=== PATIENT | female | born 1980 | race Caucasian/White ===

== ENCOUNTER → 2017-12-25 09:40 | Outpatient (CLI) | payer OTHER, MEDICAID, SELFPAY ==
--- NOTE | 2017-12-25 11:17 | DIET.PN ---
INITIAL GESTATIONAL DIABETES ASSESSMENT ASSESS: 37 y.o F referred regarding newly diagnosed gestational diabetes. This is pts third with GDM. Reports no family hx of diabetes. States she was placed on insulin with first . Was able to manage BG with diet and exercise with second. Did not have OGTT done with current , however was placed on GDM guidelines. Reports following a vegan diet when not , but currently consumes meat, some dairy, peanut butter and a lot of veggies. Pt states it has been harder to monitor BG and eat regularly as she is now in school and has 2 kids in school. Admits she probably is not eating as much or as often as she should. Is checking BG 2-3x/day most days. BRIAN: April 27, 2018 WKS GESTATION: 24 weeks LABS: 1 hr OGTT was not tested this . FB-70 1hrPP: 90-140 MEDS: n/a DIET: B: boiled egg; yogurt w/ granola; sausage w/ cheese L: vegetable smoothie D: chicken or fish, veggies, brown rice (1/2-1 cup) EXERCISE: hikes/walks daily HT: 63 PRE-PREG WT: 135 lb PRE-PREG BMI: 24 (normal) CURRENT WT: 147 lb TOTAL WT GAIN: 12 lb NUTRITION DX (1) Altered nutrition related lab values r/t Gestational diabetes as evidenced by elevated blood glucose values (OGT) INTERVENTION (1) Discussed pathophysiology of gestational diabetes and impact of hormone and nutrition/diet on blood sugar control. Discussed fed versus non-fed state. (2) Recommended checking fasting and 1hr post prandial (3x/day). Discussed goals for glycemic control (<95 FBG, <140 1-hr PP). Discussed safe disposal of strips/lancets. (3) Discussed the effect of carbohydrates/protein/fat on blood sugar control. Stressed importance of consistent carbohydrate intake at each meal and provided instructions for recommended servings/portions of carbohydrates/protein per meal. Provided pt with educational material. (4) Reviewed carbohydrate counting and measuring carbohydrate content via servings sizes and reading nutrition labels. Provided handouts. Pt with good understanding. (5) Discussed importance of meal timing and not going >3 hours between meals. Provided sample meal schedule for pt. Pt agreeable. (6) Patient may need medication management, will follow-up with plan of care at next visit after reviewing glucose results. Patient Goals: (1) Pt agreed to monitor FBG and 1hr PP 3x/day. (2) Pt agreed to plan ahead for meals and try to eat every 3 hrs. (3) Pt will add evening snack including 1 carb and 1 protein choice to help control blood glucose over night. MONITOR/EVAL: Follow up scheduled X 4-6 weeks, but will phone follow up in 1 week to discuss glucose control. Good compliance expected. Review: carb sources, carb counting, portion size, meal timing, BG log, weight.
== END ==
PROVIDERS: PCP Family Medicine; Visit Provider Family Medicine
DX: O24.419 Gestational diabetes mellitus in pregnancy, unspecified control (principal); Z3A.24 24 weeks gestation of pregnancy
CPT/HCPCS: 97802

== ENCOUNTER → 2018-02-05 09:38 | Outpatient (CLI) | payer OTHER, MEDICAID, SELFPAY ==
--- NOTE | 2018-02-05 10:42 | DIET.PN ---
GESTATIONAL DIABETES - Follow Up ASSESS: 37 y.o F referred regarding diagnosed gestational diabetes. Pt reports glucose has been well within range most of the time with occasional 1 hr PP between 140-150. States it has been a little more difficult to monitor BG as often as she should due to time constraints with school and family. She has been active over the last few months, but it has not been her usual activity. States she is looking forward to having more free time to meal prep and get back to her usual fitness routine. Also reports low iron with last blood work. BRIAN: April 27, 2018 WKS GESTATION: 28 weeks LABS: 1 hr OGTT was not tested this . FB-80 1hrPP: 90-140 MEDS: n/a DIET: B: boiled egg; yogurt w/ granola; sausage w/ cheese L: vegetable smoothie D: chicken or fish, veggies, brown rice (1/2-1 cup) EXERCISE: has been hiking more than usual due to nature of college course she is taking HT: 63 PRE-PREG WT: 135 lb PRE-PREG BMI: 24 (normal) CURRENT WT: 155 lb TOTAL WT GAIN: 20 lb NUTRITION DX (1) Altered nutrition related lab values r/t Gestational diabetes as evidenced by elevated blood glucose values (OGT) INTERVENTION (1) Reviewed BG record. Recommend pt continue to check FBG and 1 hr PP as it is especially important to control BG during this point in . (2) Discussed food log. Discussed ways to stay on meal plan with hectic schedule. (3) Discussed importance of physical activity with weight management and insulin sensitivity. (4) Discussed options for increasing iron intake. Recommended eating iron with vitamin C for increased absorption. Pt agreeable. Patient Goals: (1) Pt agreed to monitor FBG and 1hr PP 3x/day. (2) Pt will continue to plan ahead for meals and try to eat every 3 hrs. (3) Pt will add evening snack including 1 carb and 1 protein choice to help control blood glucose over night. (4) Pt will begin exercise routine at home including stationary bike and resistance training with free weights. MONITOR/EVAL: Follow up scheduled X 6 weeks discuss glucose control. Good compliance expected. Review: BG log, weight,meal timing. I do not think medication management is necessary at this time, however pt knows it is still a possibility.
== END ==
PROVIDERS: PCP Family Medicine; Visit Provider Family Medicine
DX: O24.419 Gestational diabetes mellitus in pregnancy, unspecified control (principal); Z3A.28 28 weeks gestation of pregnancy
CPT/HCPCS: 97803

== ENCOUNTER → 2018-02-15 12:53 | Outpatient (CLI) | payer OTHER, MEDICAID, SELFPAY | END | disposition home or self-care (01) | LOC: LABOR 12:58 → OB 02-17 12:58 | PROVIDERS: PCP Family Medicine; Visit Provider Family Medicine | DX: O24.419 Gestational diabetes mellitus in pregnancy, unspecified control (principal); Z3A.29 29 weeks gestation of pregnancy | CPT/HCPCS: 59025; G0378; G0379 ==

== ENCOUNTER → 2018-03-25 16:00 | Outpatient (REF) | payer OTHER, MEDICAID, SELFPAY | LOC: LAB 16:00 | PROVIDERS: PCP Family Medicine; Visit Provider Family Medicine | DX: Z34.90 Encounter for supervision of normal pregnancy, unspecified, unspecified trimester (principal) | CPT/HCPCS: 87081 ==

== ENCOUNTER → 2018-03-26 09:03 | Outpatient (CLI) | payer OTHER, MEDICAID, SELFPAY ==
--- NOTE | 2018-03-26 10:25 | DIET.PN ---
Gestational Diabetes- Follow up Assess: Pt reports glucose has not been well controlled since last visit. She began having regular contractions since last visit and was put on restricted activity. She believes the inactivity is the cause of elevated BG readings. Complains of early and constant fatigue. Often feels as though she may pass out during simple tasks such as doing the dishes. Almost feels like low blood pressure. Reports she has been drinking more water (up to 120 oz / day). Indicated at last visit with provider, baby was measuring 3 weeks early. Pt admits she has not been following dietary recommendations as she should due to restricted income. She also finds that each week more foods adversely effect her BG. She is more restrictive during the day, but binges when she gets too hungry. BRIAN: Apr 27 Induction: Apr 20 FB-109 1-2 hrPP: 124-190 Current Wt: 162 Total Wt Gained: 27 lb Intervention: 1. Reviewed BG record. Pt will cont to monitor FBG and 1 hr PP. 2. Discussed food log. Discussed way to include veg and protein on limited budget. 3. Discussed med management with pt. She is adamant she does not want to go on insulin this late during the . I also somewhat agree as it can take several weeks to make appropriate adjustments and the fear of having hypoglycemia. Discussed past complications with metformin, however I feel it might be the best route considering BG ranges and weeks until due date. Pt goals: 1. Pt agreed to cont to monitor as previously recommended. 2. Pt will try to plan ahead and prepare crockpot meals before produce ruins. Monitor: F/U scheduled x 4 weeks to monitor glucose control.
== END ==
PROVIDERS: PCP Family Medicine; Visit Provider Family Medicine
DX: O24.419 Gestational diabetes mellitus in pregnancy, unspecified control (principal)
CPT/HCPCS: 97803

== ENCOUNTER 2018-03-30 09:56 | Outpatient (CLI) | payer OTHER, MEDICAID, SELFPAY | END 2018-03-30 11:00 | disposition home or self-care (01) | LOC: LABOR 11:18 → OB 04-01 15:41 | PROVIDERS: PCP Family Medicine; Visit Provider Family Medicine | DX: O24.419 Gestational diabetes mellitus in pregnancy, unspecified control (principal); Z3A.36 36 weeks gestation of pregnancy; R10.2 Pelvic and perineal pain | CPT/HCPCS: 59025; G0378; G0379 ==

== ENCOUNTER → 2018-04-06 09:37 | Outpatient (CLI) | payer OTHER, MEDICAID, SELFPAY ==
--- NOTE | 2018-04-06 | DI.US.S_ITS ---
PROCEDURE: US OB LIMITED INDICATIONS: GESTATIONAL DIABETES OUTSIDE/PRIOR DATING DATA: Last menstrual period (LMP): 07/21/17. LMP-based estimated date of delivery (BRIAN): 04/27/80. First dating scan (date and location): 09/22/17. Estimated date of delivery (BRIAN) from first dating scan: 04/30/18. TECHNIQUE: Real-time scanning was performed of the fetus, with image documentation and biometric measurements. Endovaginal scanning: No COMPARISON: [facility], OB COMPLETE LESS THAN 14 WKS, 09/22/2017, 14:11. [facility], [facility], 12/06/2014, 8:37. FINDINGS: General: A single living intrauterine gestation is present. Presentation: Vertex. Placenta: Placental position is anterior, without previa. Amniotic fluid index: 14.4 cm, normal range is 5-24 cm. heart rate: 144 beats per minute. Maternal cervical canal: Not well-seen. cm long. biometrics: Biparietal diameter: 37 weeks 2 days Head circumference: 39 weeks Abdominal circumference: 39 weeks 3 days Femur length: 38 weeks 6 days Estimated gestational age from initial scan: 36 weeks 4 days Composite gestational age from present scan: 38 weeks 5 days Estimated weight and percentile: 3652 g; 97 percentile Measurement variability for biometric dating: +/- 7 days from 14 weeks to 15 weeks 6 days gestation, +/- 10 days from 16 weeks to 21 weeks 6 days gestation, +/- 2 weeks from 22 weeks to 27 weeks 6 days gestation, +/- 3 weeks for 28 weeks gestation or later. weight reference: 4500 g or EFW >90/95% is considered macrosomia or large for gestational age. EFW <10% is small for gestational age. EFW 5% or less is considered intra-uterine growth restriction. Other: Not applicable. IMPRESSION: Single living IUP redemonstrated and estimated weight 97 percentile. Macrosomia cannot be excluded. Dictated by: Chalo ALICEA Interpreted: Italo Auguste MD on 04/06/2018 at 10:32 Approved by: Italo Auguste M.D. on 04/06/2018 at 15:44
== END ==
PROVIDERS: PCP Family Medicine; Visit Provider Family Medicine
DX: O24.419 Gestational diabetes mellitus in pregnancy, unspecified control (principal); Z3A.38 38 weeks gestation of pregnancy
CPT/HCPCS: 76815

== ENCOUNTER 2018-04-06 10:14 | Outpatient (CLI) | payer OTHER, MEDICAID, SELFPAY | END 2018-04-06 11:10 | disposition home or self-care (01) | LOC: OB 04-08 05:40 | PROVIDERS: PCP Family Medicine; Visit Provider Family Medicine | DX: O24.419 Gestational diabetes mellitus in pregnancy, unspecified control (principal); Z3A.37 37 weeks gestation of pregnancy | CPT/HCPCS: 59025; 76815; G0378; G0379 ==

== ENCOUNTER 2018-04-09 15:56 | Outpatient (CLI) | payer OTHER, MEDICAID, SELFPAY | END 2018-04-09 17:02 | disposition home or self-care (01) | LOC: LABOR 16:57 → OB 04-13 08:50 | PROVIDERS: PCP Family Medicine; Visit Provider Family Medicine | DX: O09.893 Supervision of other high risk pregnancies, third trimester (principal); Z3A.37 37 weeks gestation of pregnancy; O24.419 Gestational diabetes mellitus in pregnancy, unspecified control | CPT/HCPCS: 59025; G0378; G0379 ==

== ENCOUNTER 2018-04-12 10:22 | Outpatient (CLI) | payer OTHER, MEDICAID, SELFPAY | END 2018-04-12 11:11 | disposition home or self-care (01) | LOC: LABOR 10:53 → OB 04-13 08:51 | PROVIDERS: PCP Family Medicine; Visit Provider Family Medicine | DX: O24.415 Gestational diabetes mellitus in pregnancy, controlled by oral hypoglycemic drugs (principal); Z3A.37 37 weeks gestation of pregnancy | CPT/HCPCS: 59025; G0378; G0379 ==

== ENCOUNTER 2018-04-16 15:52 | Outpatient (CLI) | payer OTHER, MEDICAID, SELFPAY | END 2018-04-16 16:35 | disposition home or self-care (01) | LOC: LABOR 16:12 → OR 04-19 14:06 | PROVIDERS: PCP Family Medicine; Visit Provider Obstetrics & Gynecology | DX: O24.419 Gestational diabetes mellitus in pregnancy, unspecified control (principal); Z3A.38 38 weeks gestation of pregnancy | CPT/HCPCS: 59025; G0378; G0379 ==

== ENCOUNTER 2018-04-18 19:13 | Outpatient (CLI) | payer OTHER, MEDICAID, SELFPAY | END 2018-04-18 20:30 | disposition home or self-care (01) | LOC: OB 04-19 14:06 | PROVIDERS: PCP Family Medicine; Visit Provider Family Medicine | DX: O24.419 Gestational diabetes mellitus in pregnancy, unspecified control (principal); Z3A.38 38 weeks gestation of pregnancy | CPT/HCPCS: 59025; G0378; G0379 ==

== ENCOUNTER 2018-04-19 07:04 | Inpatient (IN) | payer OTHER, MEDICAID, SELFPAY ==
[2018-04-19] MEDS: LACTATED RINGERS 1,000 ML 100 ML IV (08:00)
[2018-04-19] MEDS: OXYTOCIN PREMIX 30 UNIT/500 ML PLAST..BAG IV (08:00)
[2018-04-19 08:52] LABS: Add Manual Diff / Slide Review NO; Basophils Percent Auto 0.5 % (0-2); Eosinophils Percent Auto 0.7 % (2-4); Hematocrit 32.6 % (36-46); Hemoglobin 10.6 g/dL (12.0-16.0); Lymphocytes Percent Auto 18.5 % (25-40); Mean Corpuscular HGB Conc 32.4 % (30-36); Mean Corpuscular Hemoglobin 24.1 PG (26-34); Mean Corpuscular Volume 74.3 fL (80-100); Monocytes Percent Auto 7.2 % (3-14); Neutrophils Absolute Auto 7400 /uL (3000-5900); Neutrophils Percent Auto 73.1 % (50-75); Platelet Count 360 X10^3/uL (150-400); Red Blood Cell Count 4.38 X10^6/uL (4.0-5.2); White Blood Cell Count 10.1 X10^3/uL (4.5-11.0)
[2018-04-19 13:28] VITALS: BP 138/76
--- NOTE | 2018-04-19 17:29 | PM.OBPRVD ---
Delivery date: 04/19/18 Intrapartal events: None Induction method: per pitocin protocol Delivery augmentation: rupture of membranes Delivery monitor: external FHT and external uterine Route of delivery: Delivery repair: chromic Estimated blood loss (mL): 200 Anesthesia type: Epidural Complications: none Narrative: Identifying data this is a very pleasant 38-year-old at approximately 39 weeks just to be chin who presents to Labor and delivery for a scheduled induction due to gestational diabetes. She has been having irregular uterine contractions intermittently through the last 2 weeks but more severe yesterday. She is making slight cervical change. Her was otherwise uncomplicated other than gestational diabetes. She had progressive difficulty controlling her blood sugars and was started on glyburide 1.25 mg daily at 2 weeks prior to delivery and she had a good response to blood sugars with this. She did have premature onset of uterine contractions but no cervical trained so she intermittently was on modified bedrest. Stage I lasted 2 hr and 25 min Patient was 2 cm dilated and Pitocin was started. External tocometer heart monitor were used throughout stage I and baseline heart rate was in the 130s to 140s with accelerations moderate variability and no decelerations. Category 1 tracing. Contractions were irregular initially and then became more painful. Artificial rupture membranes was performed at 1:10 p.m. which was 2 hr and 50 min prior to delivery patient was felt to be in active labor at this time. Shortly after that patient was requesting epidural anesthesia which was performed and provided reasonable pain relief. Patient was noted to be complete at 3:35 p.m.. She was not feeling the urge to push but then with contractions there was a deceleration that lasted a minute down into the 70s but good recovery and overall reassuring heart tracing but we did decide to start pushing Stage II lasted 25 min There were deep variables with contractions lasting over minute and a wedge was placed on patient's left lateral side and oxygen was started. Patient began pushing and there was recovery of the heart rate in between contractions with continued moderate variability and baseline in the 130s. Patient was able to effectively push and after 20 min baby was delivered. Epidural was effective. Baby was occiput anterior, right and there was a semi tight nuchal cord but I was able to reduce this over the head. The anterior and posterior shoulder was delivered without difficulty and baby was placed on mom's chest. Apgars were 8 at 1 min and 9 at 5 min and 1st blood sugar was 48. Stage III lasted for minutes Normal spontaneous vaginal delivery of a intact moderately calcified placenta with a central cord insertion. There was a 3 vessel cord. There is approximately 200 cc of blood loss. There was a small skid dipti on the perineum which was repaired with 3 0 chromic in a running fashion. There were no cervical or vaginal sidewall tears. At the time this dictation both mom and baby are in stable condition.
[2018-04-19] MEDS: IBUPROFEN 600 MG TABLET PO (17:59)
[2018-04-19 20:08] VITALS: TEMP 36.6
[2018-04-19] MEDS: OXYCODONE/ACETAMINOPHEN 5/325 TABLET 1 TAB PO (20:08)
[2018-04-20 00:40] VITALS: TEMP 36.8
[2018-04-20] MEDS: IBUPROFEN 600 MG TABLET PO ×3 (00:40→12:57)
[2018-04-20] MEDS: OXYCODONE/ACETAMINOPHEN 5/325 TABLET 1 TAB PO ×5 (00:40→17:13)
--- NOTE | 2018-04-20 02:03 | P.HP_ITS ---
History of Present Illness Date Patient Seen: 04/19/18 Time Patient Seen: 08:00 Chief complaint: OBS Narrative: 38-year-old at approximately 39 weeks gestation here for induction secondary to gestational diabetes and concern for macrosomia. Patient has had irregular uterine contractions over the last 2 weeks her contractions were quite severe yesterday and she came for Cytotec cervical ripening last night but is felt to be favorable and was sent home and brought back today. She has not had any change in discharge and has not had any leaking fluid care for this was begun early on. Patient had a total of about 15 visits. Patient gained 30 lb but only gained 8 lb in the last 14 weeks Blood pressures were 102-130 2/60 6-76 Tetanus shot 02/23/2018 Flu shot 03/26/2018 Serology: A positive, antibody screen negative, rubella immune, negative for syphilis, hepatitis-B, hepatitis-C, chlamydia, gonorrhea, HIV Pap smear showed ASCUS and colposcopy done at approximately 20 weeks without any biopsies group B beta strep negative Blood sugars monitored throughout glucose tolerance test not done No other complications from other than gestational diabetes and uterine contractions without cervical change. Patient's blood sugars became increasingly more difficult to control and she was started on glyburide 2 weeks prior to delivery Past Ob history is remarkable 1. 08/21/2008 at 39 weeks gestation normal spontaneous vaginal delivery after 12 hr labor with epidural of a viable male weighing 7 lb 0 oz named Blas. She had complicated by gestational diabetes. And received intrapartum insulin as well as antepartum insulin. 2. 12/13/14 39 weeks gestation, normal spontaneous vaginal delivery after 6 hr labor without anesthesia resulted in the delivery of a viable male infant weighing 7 lb 1 oz at [facility]. complicated by gestational diabetes but diet controlled Past medical history 1. Cervical dysplasia, KENDALL 3 Two. Lumbar radiculopathy 3. Anemia Current medications ferrous gluconate 325 mg daily vitamin daily Allergies metformin, dicyclomine, sulfa Past surgical history 10/17/2016 LEEP procedure 09/17/2016 EGD negative 09/17/2016 colonoscopy negative 2005 L4-L5 diskectomy Health related behavior: Does not use drugs, does not smoke and never has had a regular basis Family history cousin with mental retardation Social history patient is in a relationship with the father of the baby. They live together and Cordis with her 2 sons Patient History Surgical History Status post loop electrosurgical excision procedure (LEEP) of cervix (10/17/16) Family & Social History Tobacco & Substance use: Smoking Status Never smoker Meds Home Medications Medication Instructions Recorded Confirmed Type Iron (ferrous sulfate) 325 mg PO DAILY 04/19/18 04/19/18 History 1 tab PO DAILY 04/19/18 04/19/18 History glyburide 1.25 mg PO DAILY 04/19/18 04/19/18 History Allergies Allergy/AdvReac Type Severity Reaction Status Date / Time Sulfa (Sulfonamide Allergy Unknown Verified 04/19/18 23:37 Antibiotics) metformin AdvReac Mild NAUSEA, Verified 04/19/18 23:37 ITCHING shellfish derived AdvReac Mild DIARRHEA, Verified 04/19/18 23:37 GI UPSET Review of Systems Review of Systems Twelve point review of systems negative Negative for any rashes Negative for any abdominal pain Negative for headaches or swelling Negative for depression Exam Vital Signs (past 8 hours): - 04/19/18 20:08 04/20/18 00:40 Temperature 97.9 F 98.3 F Narrative Exam Narrative: Afebrile vital signs are stable HEENT: Unremarkable Neck: Supple without adenopathy Chest: Clear to auscultation without wheezes rhonchi or crackles Cor: RRR without murmur Abdomen: Positive bowel sounds, gravid, vertex, estimated weight 8 lb Extremities: No edema, pulses intact Cervix 2 cm, 80%, -2 Uterine contractions irregular every 4-6 minutes, [id number] in intensity Category 1 heart tracing. Baseline 140s with accelerations with moderate variability and no decelerations Objective Labs Result Diagrams: 04/19/18 07:50 Labs: Laboratory Results - last 24 hr 04/19/18 04/19/18 07:50 07:50 WBC 10.1 RBC 4.38 Hgb 10.6 L Hct 32.6 L MCV 74.3 L MCH 24.1 L MCHC 32.4 RDW 18.0 H Plt Count 360 Neut % (Auto) 73.1 Lymph % (Auto) 18.5 L [place] % (Auto) 7.2 Eos % (Auto) 0.7 L Baso % (Auto) 0.5 Neut # (Auto) 7400 H Blood Type A Positive Antibody Screen Negative Assessment & Plan Plan: Assessment/Plan Narrative: 38-year-old at approximately 39 weeks gestation with gestational diabetes here for induction of labor Pitocin is going, will continue Continue with external heart monitor and tocometer Epidural if desires bilateral tubal ligation to be performed GBS negative Will monitor blood sugars every 2 hr during latent phase in every hour during active labor with a goal of a blood sugar of less than 105
[2018-04-20 07:12] LABS: Add Manual Diff / Slide Review NO; Basophils Percent Auto 0.5 % (0-2); Eosinophils Percent Auto 0.8 % (2-4); Hematocrit 28.2 % (36-46); Hemoglobin 9.1 g/dL (12.0-16.0); Lymphocytes Percent Auto 19.1 % (25-40); Mean Corpuscular HGB Conc 32.2 % (30-36); Mean Corpuscular Hemoglobin 23.7 PG (26-34); Mean Corpuscular Volume 73.7 fL (80-100); Monocytes Percent Auto 8.4 % (3-14); Neutrophils Absolute Auto 10600 /uL (3000-5900); Neutrophils Percent Auto 71.2 % (50-75); Platelet Count 311 X10^3/uL (150-400); Red Blood Cell Count 3.83 X10^6/uL (4.0-5.2); White Blood Cell Count 14.9 X10^3/uL (4.5-11.0)
[2018-04-20] MEDS: FERROUS GLUCONATE 324 MG TABLET PO (12:56)
[2018-04-20] MEDS: PRENATAL VIT,CALC/IRON/FOLIC 1 TABLET 1 TAB PO (12:57)
[2018-04-20] MEDS: DOCUSATE 250 MG CAPSULE PO (12:57)
--- NOTE | 2018-04-20 17:12 | PM.PN.1 ---
Subjective Date Patient Seen: 04/20/18 Time Patient Seen: 13:12 Interval history: day 1. Status post normal spontaneous vaginal delivery in patient with a complicated by gestational diabetes Patient is doing well without complaints. Breast-feeding has been very painful and has been very difficult to get a latch. Bleeding is normal No significant perineal pain. She has taken ibuprofen regularly and 1 hydrocodone. She was unable to get the tubal because it had not been 30 days since the consent was signed. She is okay without. She is comfortable with an interval tubal Exam Narrative Exam Narrative: Afebrile vital signs are stable Chest: Clear to auscultation bilaterally Cor: Regular rate and rhythm without murmur Abdomen: Positive bowel sounds, soft, nontender, uterus is firm and below the umbilicus Extremities: No edema, DTRs are intact Objective Labs Result Diagrams: 04/20/18 06:15 Labs: Laboratory Results - last 24 hr 04/20/18 06:15 WBC 14.9 H RBC 3.83 L Hgb 9.1 L Hct 28.2 L MCV 73.7 L MCH 23.7 L MCHC 32.2 RDW 18.0 H Plt Count 311 Neut % (Auto) 71.2 Lymph % (Auto) 19.1 L [place] % (Auto) 8.4 Eos % (Auto) 0.8 L Baso % (Auto) 0.5 Neut # (Auto) 54408 H Assessment & Plan Plan: Assessment/Plan Narrative: day 1. For this status post normal spontaneous vaginal delivery Plan: Routine care Likely discharge in a.m. after consult Will continue the same medications and with support.
[2018-04-21] MEDS: LANOLIN OINT 7 GM 1 APPLIC TOP (00:38)
[2018-04-21] MEDS: DOCUSATE 250 MG CAPSULE PO (09:02)
[2018-04-21] MEDS: FERROUS GLUCONATE 324 MG TABLET PO (09:02)
[2018-04-21] MEDS: IBUPROFEN 600 MG TABLET PO (12:33)
--- NOTE | 2018-04-21 13:04 | P.DS_ITS ---
Discharge Providers Date of admission: 04/19/18 07:04 Primary care physician: Taylor Sullivan MD Consults: 04/19/18 17:26 Consult to Community Organization Worker Routine Comment: Discharge provider: Taylor Sullivan MD Discharge Date: 04/21/18 Summary Date Patient Seen: 04/21/18 Time Patient Seen: 13:01 Peripartum Data Delivery Method: Natural Vaginal Laceration description: Superficial complications: none Status at Discharge Cognitive/behavioral status at discharge: Normal Overall status at discharge: patient is progressing back to baseline Time Spent with Patient Total time spent providing and/or coordinating discharge services: Less than 30 minutes Specific discharge activities: No heavy lifting Pelvic rest Routine instructions regarding infection, breast feeding, depression and control given Objective Labs Result Diagrams: 04/20/18 06:15 Discharge Plan Discharge Plan Patient Disposition: Home Discharge Med Rec/Prescriptions Prescriptions: No Action glyburide 1.25 mg tablet 1.25 mg PO DAILY RF: 0 Iron (ferrous sulfate) 325 mg 325 mg PO DAILY RF: 0 1 tablet tablet 1 tab PO DAILY RF: 0 Provider Discharge Instructions Diet: Diet as Tolerated Discharge Data Primary Care Provider: Taylor Sullivan Attending Provider: Taylor Sullivan Admit Date/Time: 04/19/18 07:04
[2018-04-21 13:19] VITALS: BP 129/80; PULSE 81; RESP 16; TEMP 37
== END 2018-04-21 14:25 | disposition home or self-care (01) | DRG 560 ==
PROVIDERS: Admitting Provider Family Medicine; PCP Family Medicine; Visit Provider Family Medicine
DX: O24.419 Gestational diabetes mellitus in pregnancy, unspecified control (principal); Z3A.39 39 weeks gestation of pregnancy; Z37.0 Single live birth; O36.63X0 Maternal care for excessive fetal growth, third trimester, not applicable or unspecified; O69.1XX0 Labor and delivery complicated by cord around neck, with compression, not applicable or unspecified; O70.0 First degree perineal laceration during delivery
CPT/HCPCS: 01967; 36415; 59025; 59050; 85025; 86850; 86900; 86901; G0379; J2590; J3010

== ENCOUNTER → 2018-04-30 09:30 | Outpatient (CLI) | payer OTHER, MEDICAID, SELFPAY ==
--- NOTE | 2018-04-30 10:09 | DIET.PN ---
Pt seen for DM education. States blood sugar has been under control aside from one hypoglycemic event with a blood sugar of 45. She immediately treated the low and has had no other issues. Has discontinued medication. current wt: 152 wt of child: 8lb ; 20 Plan: recommend pt have follow up a1c done at 6 mo. advised pt to continue monitoring bg periodically and to keep track of foods which continue to raise BG. Follow Up: no f/u scheduled at this time. Pt agreed to call with any concerns.
== END ==
PROVIDERS: PCP Family Medicine; Visit Provider Family Medicine
DX: O24.419 Gestational diabetes mellitus in pregnancy, unspecified control (principal)
CPT/HCPCS: 97803

== ENCOUNTER 2018-05-28 07:56 | Day surgery (SDC) | payer OTHER, MEDICAID, SELFPAY ==
[2018-05-28] VITALS (11 sets, daily range): BP systolic 110–144; BP diastolic 68–94; PULSE 54–74; RESP 9–20; TEMP 36.4–37.2; O2SAT 95–99; BMI 26.9
[2018-05-28] MEDS: LACTATED RINGERS 1,000 ML 42 ML IV ×2 (08:35→10:36)
--- NOTE | 2018-05-28 09:17 | SUR.OPER ---
Supine on padded OR bed, head on pillow, arm padded and tucked at side, legs uncrossed, safety belt at thigh, tape over blanket over lower legs .
--- NOTE | 2018-05-28 09:17 | PM.PREOP ---
Pre-operative Note Interval Note Pre-op Check: Yes History & Physical exam performed today by Physician Changes: No
--- NOTE | 2018-05-28 09:17 | PM.GYNHP.1 ---
History of Present Illness Reason for admission: other (Sterilization) Narrative: Michell Hart is a 38 year old female para 3 here for a tubal ligation [facility] Medical History Anemia (Acute) Gestational diabetes (Acute) Lumbar radiculopathy (Acute) Recent childbirth (Acute ~04/2018) Surgical History H/O lumbar discectomy (Acute ~2005) History of colonoscopy (Acute ~09/17/16) History of esophagogastroduodenoscopy (EGD) (Acute ~09/17/16) Status post loop electrosurgical excision procedure (LEEP) of cervix (10/17/16) Social History household members: spouse Smoking Status: Never smoker Meds Home Medications Medication Instructions Recorded Confirmed Type Iron (ferrous sulfate) 325 mg PO DAILY 04/19/18 05/28/18 History 1 tab PO DAILY 04/19/18 05/28/18 History Allergies Allergy/AdvReac Type Severity Reaction Status Date / Time Sulfa (Sulfonamide Allergy Unknown Rash Verified 05/28/18 08:32 Antibiotics) metformin AdvReac Mild NAUSEA, Verified 05/21/18 09:28 ITCHING shellfish derived AdvReac Mild DIARRHEA, Verified 05/21/18 09:28 GI UPSET Review of Systems Review of Systems Patient is without difficulty. Her bleeding is minimal . All systems reviewed & are unremarkable except as noted in HPI and below Exam Vital Signs (past 8 hours): - 05/28/18 08:19 Temperature 97.8 F Pulse Rate 65 Respiratory Rate 16 Blood Pressure 136/92 H Pulse Oximetry 99 Oxygen Delivery Method Room Air Narrative Exam Narrative: HEENT exam within normal limits. Lungs are clear to auscultation and percussion. No thyromegaly. Heart is regular rate and rhythm no S3-S4 or murmurs. Abdomen is soft, nontender. Uterus is just palpable above the pubic symphysis. Extremities without edema, nontender. Assessment & Plan (1) Admission for sterilization: Current visit: Yes Status: Acute Plan: Assessment/Plan Narrative: Patient who is 4 weeks here for tubal ligation. She has signed her [facility] consent form greater than 30 days ago. Consent form was reviewed with the patient and signed. Risks of damage to internal structures and ectopic discussed with patient. Time Spent With Patient Time with patient: less than 15 minutes
--- NOTE | 2018-05-28 09:22 | P.HPOB_ITS ---
History of Present Illness Reason for admission: other (Sterilization) Narrative: Michell Hart is a 38 year old female para 3 here for a tubal ligation [facility] Medical History Anemia (Acute) Gestational diabetes (Acute) Lumbar radiculopathy (Acute) Recent childbirth (Acute ~04/2018) Surgical History H/O lumbar discectomy (Acute ~2005) History of colonoscopy (Acute ~09/17/16) History of esophagogastroduodenoscopy (EGD) (Acute ~09/17/16) Status post loop electrosurgical excision procedure (LEEP) of cervix (10/17/16) Social History household members: spouse Smoking Status: Never smoker Meds Home Medications Medication Instructions Recorded Confirmed Type Iron (ferrous sulfate) 325 mg PO DAILY 04/19/18 05/28/18 History 1 tab PO DAILY 04/19/18 05/28/18 History Allergies Allergy/AdvReac Type Severity Reaction Status Date / Time Sulfa (Sulfonamide Allergy Unknown Rash Verified 05/28/18 08:32 Antibiotics) metformin AdvReac Mild NAUSEA, Verified 05/21/18 09:28 ITCHING shellfish derived AdvReac Mild DIARRHEA, Verified 05/21/18 09:28 GI UPSET Review of Systems Review of Systems Patient is without difficulty. Her bleeding is minimal . All systems reviewed & are unremarkable except as noted in HPI and below Exam Vital Signs (past 8 hours): - 05/28/18 08:19 Temperature 97.8 F Pulse Rate 65 Respiratory Rate 16 Blood Pressure 136/92 H Pulse Oximetry 99 Oxygen Delivery Method Room Air Narrative Exam Narrative: HEENT exam within normal limits. Lungs are clear to auscultation and percussion. No thyromegaly. Heart is regular rate and rhythm no S3-S4 or murmurs. Abdomen is soft, nontender. Uterus is just palpable above the pubic symphysis. Extremities without edema, nontender. Assessment & Plan (1) Admission for sterilization: Current visit: Yes Status: Acute Plan: Assessment/Plan Narrative: Patient who is 4 weeks here for tubal ligation. She has signed her [facility] consent form greater than 30 days ago. Consent form was reviewed with the patient and signed. Risks of damage to internal structures and ectopic discussed with patient. Time Spent With Patient Time with patient: less than 15 minutes
[2018-05-28] MEDS: BUPIVACAINE 0.5% W/ EPI (PF) VIAL 30 ML INJ (10:01)
--- NOTE | 2018-05-28 10:22 | P.OP_ITS ---
Operative Date/Time/Diagnoses Date of procedure: 05/28/18 Time of procedure: 10:17 Pre-op diagnosis: Undesired fertility Post-op diagnosis: same Procedure & Clinicians Procedure: Laparoscopic bilateral tubal ligation by fulguration Same procedure as scheduled: Yes Indications: Undesired fertility Surgeon: Tiffanie Payton Click Yes if Unassisted: Yes Anesthesia Type: General Operative Notes Findings: Normal tubes ovaries and uterus. Normal bowel surface. Normal liver edge. Closure Type: primary Specimen(s): none sent Estimated Blood Loss (mL): 2 Blood products transfused: none Procedure in detail: Patient was brought to the operating room where she underwent general anesthesia. She was placed in low yellowfin stirrups and prepped and draped in usual sterile fashion. Warming was with blankets. The area of the incisions were injected with half percent Marcaine with epinephrine. An incision was made in the umbilicus with a scalpel and the Verres needle placed in the abdomen. Confirmation of correct placement of the needle was performed by withdrawing on the syringe and then allowing fluid to fall freely through the needle. The abdomen was insufflated to 4 L of CO2. A 5 mm trocar was placed under direct visualization. 1other 5 mm trochar was placed in the right lower quadrant under direct visualization after incising the skin. There did not appear to be any damage with placement of the trocar. The right fallopian tube was grasped and cauterized x3 with the PK generator. Same procedure was performed on the left fallopian tube. The CO2 was allowed to escape from the abdomen. The trochars were removed. Skin was closed with 4- 0 Monocryl. The patient went to recovery room in good condition. Complications: none Condition: stable Disposition: same day surgery Plan for aftercare: Home when awake and stable
[2018-05-28] MEDS: fentaNYL 100 MCG/2 ML INJ 50 MCG IV ×2 (10:31→10:38)
--- NOTE | 2018-05-28 10:51 | SUR.PHASEI ---
Pt stated I think I burnt my tongue. Pt sipping tea. Ice chips provided. Tongue tissue wnl. No pt denying pain to tongue. Pt stated it's hard to breath and swallow. VS stable. O2 sat 100%ra. Dr. Olvera notified, no new orders.
[2018-05-28] MEDS: OXYCODONE/ACETAMINOPHEN 5/325 TABLET 1 TAB PO (11:20)
--- NOTE | 2018-05-28 11:23 | SUR.PHASEII ---
Pt tolerated applesauce. Stated my tongue is fine. Reported 4/10 abd pain. medicated with percocet.
[2018-05-28] MEDS: METOCLOPRAMIDE 10 MG/2 ML INJ IV (11:37)
--- NOTE | 2018-05-28 12:45 | SUR.PHASEII ---
1110 report recieved from Dean Clements RN . Pt complaining of nausea . Pt given cold cloth and shannan malena for her nausea she was medicated by previous RN.
--- NOTE | 2018-05-28 13:01 | SUR.PHASEII ---
pt up to bathroom voided without difficulty and pt is getting dressed. States pain is okay at a 3 and she is up and walking around. Pt states she is ready to go home. Also states she wants to go home. dressings to abdomen dry and intact.
== END 2018-05-28 13:00 | disposition home or self-care (01) ==
PROVIDERS: PCP Family Medicine; Visit Provider Specialist
PROC: (CPT 58671; principal; 2018-05-28 09:00)
DX: Z30.2 Encounter for sterilization (principal); D64.9 Anemia, unspecified
CPT/HCPCS: 58670; J1100; J1885; J2704; J2765; J3010

== ENCOUNTER → 2022-04-28 08:13 | Outpatient (CLI) | payer SELFPAY ==
--- NOTE | 2022-04-28 08:29 | DI.RAD.S_ITS ---
PROCEDURE: XR CHEST 2V INDICATIONS: Cough TECHNIQUE: 2 views of the chest were acquired. COMPARISON: None. FINDINGS: Surgical changes and devices: None. Lungs and pleura: Lungs are clear. No pleural effusions or pneumothorax. Mediastinum: Mediastinal contours are normal. Heart size is normal. Bones and chest wall: No suspicious bony abnormalities. Soft tissues appear unremarkable. IMPRESSION: No acute pulmonary process. Dictated by: Gaby Hancock M.D. on 04/28/2022 at 12:55 Approved by: Gaby Hancock M.D. on 04/28/2022 at 12:55
== END ==
PROVIDERS: PCP Family Medicine; Referring Provider Nurse Practitioner Family; Visit Provider Nurse Practitioner Family
DX: R05.9 Cough, unspecified (principal)
CPT/HCPCS: 71046

== ENCOUNTER → 2023-05-15 08:37 | Outpatient (CLI) | payer OTHER, MEDICAID, SELFPAY ==
--- NOTE | 2023-05-15 | DI.US.S_ITS ---
PROCEDURE: US BREAST LT LIMITED COMPARISON: None. INDICATIONS: Mastodynia FINDINGS: IMPRESSION: Dictated by: Ruy Bishop M.D. on 05/15/2023 at 9:55 Approved by: Ruy Bishop M.D. on 05/15/2023 at 9:55
--- NOTE | 2023-05-15 | DI.MG.S_ITS ---
BILATERAL DIGITAL DIAGNOSTIC MAMMOGRAM 3D/2D: 05/15/2023 CLINICAL: Diffuse left breast pain. Baseline exam. No prior exams were available for comparison. Both breasts are heterogeneously dense, which may obscure small masses (category c / 51-75% glandular tissue). There is a possible asymmetry in the left breast posterior depth lateral region seen on the craniocaudal view only. No other significant masses, calcifications, or other findings are seen in either breast. IMPRESSION: INCOMPLETE: NEEDS ADDITIONAL IMAGING EVALUATION The possible asymmetry in the left breast is indeterminate. An ultrasound is recommended. This is incidental. There is no abnormality seen in either breast to correspond with the diffuse pain in the outer aspect, however, clinical correlation and clinical followup are recommended. Based on the Tyrer Cuzick model (a risk assessment model) the patient's lifetime risk is 13.3% and her 10 year risk is 1.8%. According to the ACR, ACS, and NCCN guidelines, an annual breast MRI exam along with mammogram is recommended if the patient's lifetime risk is 20% or greater. This exam was interpreted at Station ID: [id number]. NOTE: For mammograms, a report in lay terms will be sent to the patient. Approximately 15% of breast malignancies will not be visualized mammographically. In the management of a palpable breast mass, a negative mammogram must not discourage biopsy of a clinically suspicious lesion. Electronically Signed By: Ruy Bishop M.D. lc/:05/15/2023 09:54:37 ACR BI-RADS Category 0: Incomplete 3340F
--- NOTE | 2023-05-15 09:38 | DI.US.S_ITS ---
Patient Name: TERRANCE CROOKS date: 1980 Sex: F Attending Physician: Nate Indications: Date: 05/15/2023 09:55 At the request of: LINDSEY SCHOFIELD Procedure: US breast LT limited ULTRASOUND OF LEFT BREAST: 05/15/2023 CLINICAL: Diffuse left breast pain. Comparison is made to exam dated: 05/15/2023 mammogram - [facility]. Color flow and real-time ultrasound of the left breast were performed. Wills scale images of the real-time examination were reviewed. No significant abnormalities were seen sonographically in the left breast. IMPRESSION: PROBABLY BENIGN There is no abnormality seen in the left breast to correspond with the mammography finding (L CC view, posterior depth, possible asymmetry) A follow-up mammogram in 6 months is recommended to demonstrate stability. This exam was interpreted at Station ID: [id number]. Electronically Signed By: Ruy Bishop M.D. lc/:05/15/2023 09:55:52 letter sent: Followup Recommended Ultrasound BI-RADS: 3 Probably benign
== END ==
PROVIDERS: PCP Family Medicine; Referring Provider Family Medicine; Visit Provider Family Medicine
DX: N64.4 Mastodynia (principal); R92.2 Inconclusive mammogram
CPT/HCPCS: 76642; 77066; G0279

== ENCOUNTER → 2023-12-18 09:19 | Outpatient (CLI) | payer OTHER, MEDICAID, SELFPAY ==
--- NOTE | 2023-12-18 | DI.MG.S_ITS ---
UNILATERAL LEFT DIGITAL DIAGNOSTIC MAMMOGRAM 3D/2D: 12/18/2023 CLINICAL: Patient returns for a 6 month follow up of the left breast. Comparison is made to exams dated: 05/15/2023 ultrasound and 05/15/2023 mammogram - [facility]. The left breast is heterogeneously dense, which may obscure small masses (category c / 51-75% glandular tissue). There is a stable asymmetry in the left breast posterior depth lateral region seen on the craniocaudal view only. This was not seen on the prior ultrasound. No other significant masses or calcifications are seen in the breast. IMPRESSION: PROBABLY BENIGN The stable asymmetry in the left breast is probably benign. A follow-up mammogram in 6 months is recommended to demonstrate stability. Based on the Tyrer Cuzick model (a risk assessment model) the patient's lifetime risk is 13.7% and her 10 year risk is 1.9%. According to the ACR, ACS, and NCCN guidelines, an annual breast MRI exam along with mammogram is recommended if the patient's lifetime risk is 20% or greater. This exam was interpreted at Station ID: [id number]. NOTE: For mammograms, a report in lay terms will be sent to the patient. Approximately 15% of breast malignancies will not be visualized mammographically. In the management of a palpable breast mass, a negative mammogram must not discourage biopsy of a clinically suspicious lesion. Electronically Signed By: Ruy Bishop M.D. /:12/18/2023 10:15:53 letter sent: Followup Recommended ACR BI-RADS Category 3: Probably benign 3343F
== END ==
LOC: MAMMO 09:20
PROVIDERS: PCP Family Medicine; Referring Provider Family Medicine; Visit Provider Family Medicine
DX: R92.8 Other abnormal and inconclusive findings on diagnostic imaging of breast (principal); N64.89 Other specified disorders of breast; R92.332 Mammographic heterogeneous density, left breast
CPT/HCPCS: 77065; G0279

== ENCOUNTER 2024-07-26 09:18 | Emergency (ER) | payer SELFPAY ==
[2024-07-26] VITALS (12 sets, daily range): BP systolic 140–199; BP diastolic 90–122; PULSE 67–99; RESP 14; TEMP 36.6; O2SAT 95–99; BMI 11.0
--- NOTE | 2024-07-26 09:42 | ED.BACK ---
HPI - Back Pain/Injury General Chief Complaint: Back Pain/Injury Stated Complaint: diff walking Time Seen by Provider: 07/26/24 09:22 Source: patient History of Present Illness HPI Narrative: Patient brought here by with complaints of right low back pain radiating down the right foot. No urinary incontinence or retention. No bowel or bladder incontinence or retention. No saddle paresthesia. Patient had L4-L5 diskectomy in 2005 and [place]. Has had about 3 or 4 episodes of back pain flare-ups since then. Last time she was here was 9 years ago. MRI was completed at that time but no imaging since then. Patient did see urgent Care in the past week for flare-up of the back pain and was given methocarbamol/tramadol and Medrol Dosepaks which she finished 2 days ago. No known injuries but she did go sledding a couple of weeks ago but does not recall any injury. But shortly afterward her back pain flared up. No urinary complaints. Related Data Previous Rx's Medication Instructions Recorded benzonatate 100 mg capsule 100 mg PO BID PRN cough #20 caps 04/28/22 oxycodone-acetaminophen 5 mg-325 1 tab PO Q4-6H PRN pain #20 tabs 07/26/24 mg tablet (Percocet) Allergies Allergy/AdvReac Type Severity Reaction Status Date / Time Sulfa (Sulfonamide Allergy Unknown Rash Verified 07/26/24 09:29 Antibiotics) metformin AdvReac Mild NAUSEA, Verified 07/26/24 09:29 ITCHING shellfish derived AdvReac Mild DIARRHEA, Verified 07/26/24 09:29 GI UPSET Review of Systems Review of Systems Narrative: GENERAL: Negative chills, fatigue, malaise, fever, sweats. HEENT: Negative sinus pain, ear pain, sore throat RESPIRATORY: Negative dyspnea, cough CARDIOVASCULAR: Negative chest pain, palpitations GASTROINTESTINAL: Negative nausea, vomiting, abdominal pain : Negative dysuria, frequency, hematuria MUSCULOSKELETAL: Positive back pain, muscle or bony pain SKIN: Negative rash, skin lesions NEUROLOGIC: Negative weakness, numbness ROS Unobtainable: All systems reviewed & are unremarkable except as noted in HPI and below Patient History Medical History (Updated 07/26/24 @ 13:33 by Bright Kidd MD) Recent childbirth (~04/2018) Anemia Lumbar radiculopathy Gestational diabetes Surgical History (Updated 05/21/18 @ 09:27 by Cat Sarah RN) H/O lumbar discectomy (~2005) History of esophagogastroduodenoscopy (EGD) (~09/17/16) History of colonoscopy (~09/17/16) Status post loop electrosurgical excision procedure (LEEP) of cervix (10/17/16) Social History household members: spouse Smoking Status: Never smoker Smoking Status: Never smoker Exam Narrative Exam Narrative: GENERAL: in no distress, not toxic not dyspneic HEAD: Normocephalic. EYES: Pupils equal round ENT: Mucous membranes moist. NECK: Trachea midline. CARDIOVASCULAR: Regular rate and rhythm RESPIRATORY: Clear to auscultation. Breath sounds equal bilaterally. No wheezes, rales, or rhonchi. GASTROINTESTINAL: Abdomen soft, non-tender EXTREMITIES: No gross deformities. BACK: No flank tenderness. There is reproducible right low paralumbar muscle tenderness. Increased pain with right straight leg raise at 45?. Able to sit up from her bed. Has slow gait with assist by in hallway without foot drop on her way to her room. NEURO: AOx4. Strong bilateral patellar reflexes and ankle flexion-extension. Light touch intact to bilateral feet, wiggles toes. SKIN: Warm and dry PSYCH: Not anxious, is cooperative Initial Vital Signs Initial Vital Signs: Vital Signs Temperature 97.9 F 07/26/24 09:19 Pulse Rate 82 07/26/24 09:19 Respiratory Rate 14 07/26/24 09:19 Blood Pressure 176/103 H 07/26/24 09:19 Pulse Oximetry 97 07/26/24 09:19 Oxygen Delivery Method Room Air 07/26/24 09:19 Course Orders Ordered: Discontinued Medications Hydromorphone HCl (Hydromorphone 1 Mg Inj) 1 mg IV NOW ONE Stop: 07/26/24 09:42 Last Admin: 07/26/24 10:56 Dose: 1 mg Documented By: TAYLOR Ketorolac Tromethamine (Ketorolac 30 Mg/Ml Vial) 15 mg IV NOW ONE Stop: 07/26/24 09:42 Last Admin: 07/26/24 10:09 Dose: 15 mg Documented By: TAYLOR Ondansetron HCl (Ondansetron 4 Mg/2 Ml Inj) 4 mg IV NOW ONE Stop: 07/26/24 09:42 Last Admin: 07/26/24 10:56 Dose: 4 mg Documented By: TAYLOR Vital Signs Vital signs: Vital Signs - 8 hr 07/26/24 09:19 07/26/24 09:22 07/26/24 09:23 Temperature 97.9 F Pulse Rate 82 99 H Respiratory Rate 14 Blood Pressure 176/103 H 199/122 H Pulse Oximetry 97 98 Oxygen Delivery Method Room Air 07/26/24 09:23 07/26/24 09:27 07/26/24 09:27 Temperature Pulse Rate 99 H 82 Respiratory Rate Blood Pressure 176/103 H Pulse Oximetry 98 99 Oxygen Delivery Method 07/26/24 09:30 07/26/24 09:30 07/26/24 10:00 Temperature Pulse Rate 73 67 Respiratory Rate Blood Pressure 172/97 H Pulse Oximetry 99 99 Oxygen Delivery Method 07/26/24 11:03 07/26/24 11:03 07/26/24 11:30 Temperature Pulse Rate 74 Respiratory Rate Blood Pressure 148/96 H 147/90 H Pulse Oximetry 98 Oxygen Delivery Method 07/26/24 11:30 07/26/24 12:29 07/26/24 12:29 Temperature Pulse Rate 69 73 Respiratory Rate Blood Pressure 147/97 H Pulse Oximetry 95 95 Oxygen Delivery Method 07/26/24 12:30 07/26/24 12:30 Temperature Pulse Rate 68 Respiratory Rate Blood Pressure 144/99 H Pulse Oximetry 95 Oxygen Delivery Method MDM - Back Pain/Injury Imaging Data MRI lumbar spine: Radiologist's Impression: [place] [address] Magnetic Resonance Report Signed Patient: Michell Enriquez MR#: [id number] : 1980 Acct:[id number] Age/Sex: 44 / F Date of Service: 07/26/24 Loc: ED Accession Number: [id number] Procedure: MR lumbar spine wo con Ordering Provider: Bright Kidd MD PROCEDURE: MR LUMBAR SPINE WO CON INDICATIONS: Low back pain right leg weakness TECHNIQUE: Noncontrast sagittal T1 spin echo and T2 fast echo, sagittal STIR, and T2 fast spin echo through the lumbar spine. In cases with scoliosis, additional coronal T2 fast spin echo may be performed. COMPARISON: [facility], , L-SPINE WITHOUT CONTRAST, 10/03/2015, 12:39. FINDINGS: Image quality: Excellent. Alignment and Curvature: There is normal bony alignment. Bone Marrow: Marrow is of normal overall signal. No acute vertebral body compression fractures. Spinal Cord: Conus medullaris terminates at the L1 level. Visualized cord demonstrates normal signal and size. Paraspinous Soft Tissues: No paravertebral masses. There is a water signal cyst seen on the left. T12-L1: Normal appearance. L1-L2: Normal appearance. L2-L3: Normal appearance. L3-L4: Normal appearance. L4-L5: Moderate loss of disc height is seen. Loss of disc signal is seen. Reactive marrow endplate changes are seen, which are hyperintense on T1-weighted and T2-weighted imaging and most consistent with fatty metaplasia (Modic type II changes). Moderate disc bulge is seen, with a central disc extrusion. There is mild right-sided and [id number] left-sided facet hypertrophy. There is moderate left-sided and moderate to severe right-sided neural foraminal narrowing. There is a degree of compression seen upon the exiting right L4 nerve root. Moderate central canal narrowing is seen. These imaging findings have progressed compared to the prior study. L5-S1: Moderate loss of disc height is seen. Loss of disc signal is seen. Reactive marrow endplate changes are seen, which are hyperintense on T1-weighted and T2-weighted imaging and most consistent with fatty metaplasia (Modic type II changes). Mild disc bulge is seen, with a central disc protrusion. Prior right hemilaminectomy change can be seen. Mild to moderate facet hypertrophy can be seen. There is at least moderate bilateral neural foraminal narrowing seen. There is a degree of compression seen upon the exiting nerve roots. No central canal narrowing is seen. The degree of neural foraminal narrowing at this level has progressed compared to 2016. IMPRESSION: Focal lower lumbar spine degenerative changes are seen, which are progressed compared to 2016. Dictated by: Piero Kyle M.D. on 07/26/2024 at 11:54 Approved by: Piero Kyle M.D. on 07/26/2024 at 11:58 [facility] Narrative Medical decision making narrative: Patient brought here by with complaints of right low back pain radiating down the right foot. No urinary incontinence or retention. No bowel or bladder incontinence or retention. No saddle paresthesia. Patient had L4-L5 diskectomy in 2005 and [place]. Has had about 3 or 4 episodes of back pain flare-ups since then. Last time she was here was 9 years ago. MRI was completed at that time but no imaging since then. Patient did see urgent Care in the past week for flare-up of the back pain and was given methocarbamol/tramadol and Medrol Dosepaks which she finished 2 days ago. No known injuries but she did go sledding a couple of weeks ago but does not recall any injury. But shortly afterward her back pain flared up. No urinary complaints. After history and exam, exam is reassuring. Toradol Dilaudid Zofran MRI lumbar spine ordered., no blood work indicated at this time. [facility] Medical records reviewed: No recent visit here for this complaint Differential considered: Includes but not limited to lumbar radiculopathy lumbar strain bulging disc cauda equina Imaging studies independently reviewed: MRI lumbar spine multilevel degenerative disc disease Consultations: None indicated at this time. Treatments: Toradol Dilaudid Zofran Re-evaluations: 1:30 p.m.. Updated patient and results. Pain is controlled at this time. She does see primary Care Dr. Sullivan, Dr. Taylor Sullivan. She will follow up with Dr. Sullivan for re-evaluation and referral for physical therapy and ortho spine specialty services. Discussion: Appropriate for discharge home exam is reassuring. Pain is controlled. No significant neuro deficits. No red flags. No fever. MRI is otherwise reassuring. Diagnosis: Lumbar radiculopathy Discharge Plan Departure Patient Disposition: Home Clinical Impression: Acute lumbar radiculopathy Lumbar degenerative disc disease Qualifiers: Disc-related pain type: unspecified whether pain present Qualified Code(s): M51.369 - Other intervertebral disc degeneration, lumbar region without mention of lumbar back pain or lower extremity pain Instructions: DI for Degenerative Disc Disease, DI for Lumbar Radiculopathy Activity Restrictions/Additional Instructions: No driving operating machinery today or when taking prescribed pain medication. Please see family doctor a call provided clinic for family doctor to follow up and for referral for ortho spine. Phone number is [phone] Prescriptions: New oxycodone-acetaminophen [Percocet] 5-325 mg tablet 1 tab PO Q4-6H PRN (Reason: pain) Qty: 20 0RF No Action benzonatate 100 mg capsule 100 mg PO BID PRN (Reason: cough) Qty: 20 0RF Referrals: Taylor Sullivan MD [Primary Care Provider] - Stand Alone Forms: Patient Portal/API/Survey
[2024-07-26] MEDS: KETOROLAC 30 MG/ML VIAL 15 MG IV (10:09)
[2024-07-26] MEDS: HYDROMORPHONE 1 MG INJ IV (10:56)
[2024-07-26] MEDS: ONDANSETRON 4 MG/2 ML INJ IV (10:56)
== END 2024-07-26 13:56 | disposition home or self-care (01) ==
PROVIDERS: Emergency Provider Emergency Medicine; PCP Family Medicine
DX: M54.16 Radiculopathy, lumbar region (principal); M51.369 Other intervertebral disc degeneration, lumbar region without mention of lumbar back pain or lower extremity pain
CPT/HCPCS: 36415; 72148; 96374; 96375; 99284; J1171; J1885; J2405